=== PATIENT | male | born 1990 | race Caucasian/White ===

== ENCOUNTER 2021-07-04 11:59 | Emergency (ER) | payer MEDICAID, BC ==
[2021-07-04 13:16] LABS: AMPHETAMINES,URINE NEGATIVE (NEGATIVE); BARBITURATES,URINE NEGATIVE (NEGATIVE); BENZODIAZEPINE,URINE NEGATIVE (NEGATIVE); MDMA (ECSTASY), URINE NEGATIVE (NEGATIVE); METHADONE,URINE NEGATIVE (NEGATIVE); METHAMPHETAMINES,URINE NEGATIVE (NEGATIVE); OPIATES,URINE NEGATIVE (NEGATIVE); OXYCODONE,URINE NEGATIVE (NEGATIVE); PHENCYCLIDINE,URINE NEGATIVE (NEGATIVE); TCA,URINE NEGATIVE (NEGATIVE)
[2021-07-04 13:29] LABS: ANION GAP 14.8 mEq/L (7-13); CHLORIDE,CL 104 mmol/L (98-107); SODIUM,NA 143 mmol/L (136-145)
[2021-07-04] MEDS ORDERED: Ketorolac 30 MG/ML SDV IM ONE (13:40)
== END 2021-07-04 14:05 | disposition home or self-care (01) ==
LOC: DL.ED 11:59
DX: M54.6 Pain in thoracic spine (principal); Z72.0 Tobacco use
CPT/HCPCS: 36415; 80053; 80305; 81003; 82150; 82947; 83690; 83735; 85025; 86140; 96372; 99284; J1885

== ENCOUNTER 2021-08-21 19:27 | Emergency (ER) | payer BC, MEDICAID ==
[2021-08-21 22:03] LABS: CORONAVIRUS COVID-19 NAA NEGATIVE (NEGATIVE)
[2021-08-21] MEDS ORDERED: Oseltamivir 75 MG Cap PO ONE (22:59)
[2021-08-21 23:40] LABS: ANION GAP 12.8 mEq/L (7-13); CHLORIDE,CL 100 mmol/L (98-107); SODIUM,NA 139 mmol/L (136-145)
[2021-08-21] MEDS ORDERED: predniSONE 20 MG Tab PO ONE (23:44)
== END 2021-08-22 00:35 | disposition home or self-care (01) ==
LOC: DL.ED 19:27
DX: J10.1 Influenza due to other identified influenza virus with other respiratory manifestations (principal); R09.1 Pleurisy; Z72.0 Tobacco use; Z20.822 Contact with and (suspected) exposure to COVID-19
CPT/HCPCS: 0240U; 36415; 71045; 80053; 84484; 85025; 86140; 99284; 99285; A9270; J7512